=== PATIENT | female | born 1970 | race Caucasian/White ===

== ENCOUNTER 2017-11-10 17:13 | Emergency (ER) | payer OTHER ==
[~2017-11-10] VITALS: Ht 165.1 cm; Wt 63.3 kg
[2017-11-10] MEDS ORDERED: VALIUM5 MG PO (21:49)
[2017-11-10] MEDS ORDERED: PERCOCET 5/31 TABLET PO (21:49)
[2017-11-10] MEDS ORDERED: MOTRIN600 MG PO (21:49)
[2017-11-10 22:27] VITALS: BP 120/69
== END 2017-11-10 22:27 | disposition home or self-care (01) ==
LOC: EME 17:13
DX: M54.16 Radiculopathy, lumbar region (principal); M54.32 Sciatica, left side; Z88.5 Allergy status to narcotic agent
CPT/HCPCS: 84484; 99281; 99284; J1885